=== PATIENT | female | born 1990 | race Caucasian/White ===

== ENCOUNTER 2018-05-24 21:02 | Observation (INO) | payer OTHER ==
[~2018-05-24] VITALS: Ht 172.7 cm; Wt 117.6 kg
[2018-05-25 09:46] VITALS: BP 133/69
[2018-05-25 13:49] VITALS: BP 121/69
[2018-05-25 16:09] LABS: HEMATOCRIT 40.4 % (36.0-46.0); HEMOGLOBIN 13.7 G/DL (11.9-15.5); MCH 29.6 PG (29.0-34.0); MCHC 33.9 G/DL (30.0-36.0); MCV 87.3 FL (83-99); PLATELET COUNT 273 K/uL (156-360); RBC DIS.WIDTH-CV 12.5 % (11.8-14.6); RED BLOOD COUNT 4.63 M/uL (3.80-5.20); WHITE BLOOD COUNT 14.1 K/uL (4.1-10.2)
[2018-05-25 16:14] VITALS: BP 103/60
[2018-05-25 16:34] LABS: CHLORIDE 104 MEQ/L (99-109); CREATININE 0.6 MG/DL (0.6-1.3); GFR ESTIMATE (CALCULATED) > 59 mL/min/; GLUCOSE 166 mg/dL (70-99); POTASSIUM 3.7 MEQ/L (3.7-5.4); SODIUM 136 MEQ/L (136-147); UREA NITROGEN (BUN) 8 mg/dL (9-23)
[2018-05-25 16:46] LABS: CARCINOEMBR.ANTIGEN 0.3 NG/ML
[2018-05-25 19:30] VITALS: BP 111/65
[2018-05-25 23:49] VITALS: BP 111/56
[2018-05-26 03:15] VITALS: BP 113/64
[2018-05-26 07:06] LABS: HEMATOCRIT 43.5 % (36.0-46.0); HEMOGLOBIN 14.3 G/DL (11.9-15.5); MCH 28.8 PG (29.0-34.0); MCHC 32.9 G/DL (30.0-36.0); MCV 87.5 FL (83-99); RBC DIS.WIDTH-CV 12.5 % (11.8-14.6); RBC DIS.WIDTH-SD 39.8 % (39-53); RED BLOOD COUNT 4.97 M/uL (3.80-5.20); WHITE BLOOD COUNT 15.5 K/uL (4.1-10.2)
[2018-05-26 07:20] LABS: PLATELET COUNT 358 K/uL (156-360)
[2018-05-26 07:21] VITALS: BP 103/59
[2018-05-26 07:27] LABS: CHLORIDE 104 MEQ/L (99-109); CREATININE 0.7 MG/DL (0.6-1.3); GFR ESTIMATE (CALCULATED) > 59 mL/min/; POTASSIUM 4.1 MEQ/L (3.7-5.4); SODIUM 140 MEQ/L (136-147); UREA NITROGEN (BUN) 6 mg/dL (9-23)
[2018-05-26 07:28] LABS: GLUCOSE 113 mg/dL (70-99)
[2018-05-26 08:00] VITALS: BP 103/59
[2018-05-26] MEDS ORDERED: TRAMADOL HCL50 MG PO (09:18)
== END 2018-05-26 10:30 | disposition home or self-care (01) ==
LOC: ENRESERV 21:02 → 2EAST 05-25 09:17 → 2SOUTH 05-25 09:17 → ENRESERV 05-25 13:11 → 2EAST 05-25 13:24 → 2SOUTH 05-25 15:53 → 2EAST 05-26 10:30
PROVIDERS: Obstetrics & Gynecology Gynecologic Oncology
DX: C56.2 Malignant neoplasm of left ovary (principal); Z68.41 Body mass index [BMI] 40.0-44.9, adult; Q50 Congenital malformations of ovaries, fallopian tubes and broad ligaments
CPT/HCPCS: 80048; 82105 90; 82378; 84702 90; 85027; 86850; 86900; 86901; 86920; 88305; 88309; G0378; J0131; J0690; J1100; J1170; J1650; J1885; J2250; J2405; J2710; J3010; J7643